=== PATIENT | male | born 1965 | race Two or more races ===

== ENCOUNTER 2021-10-15 07:11 | Emergency (ER) | payer SELFPAY ==
[~2021-10-15] VITALS: Ht 165.1 cm; Wt 74.8 kg
--- NOTE | 2021-10-15 07:11 | NUR ---
BIB SISTER PT C/O ABDOMNIAL PAIN, NAUSEA, AND VOMITTING X2 DAYS. PT IS A&OX4 AND STABLE. PT VITAL ARE STABLE AND BREATHING IS UNLABORED. PT WAS SENT TO ER BED 1. WILL CONTINUE TO MONITOR.
--- NOTE | 2021-10-15 07:13 | NUR ---
PT LABS WERE DRAWN AND SENT TO LAB.
--- NOTE | 2021-10-15 07:42 | NUR ---
PT TAKEN TO CT
[2021-10-15] MEDS ORDERED: IV NS 0.9% 1,000 ML BAG IV ONE (08:00)
[2021-10-15] MEDS ORDERED: FAMOTIDINE/PF INJ 20 MG/2 ML VIAL IV ONE ×2 (08:00→08:35)
[2021-10-15] MEDS ORDERED: LIDOCAINE VISCOUS 2% UD 15 ML UDC MM ONE (08:00)
[2021-10-15] MEDS ORDERED: MORPHINE SULFATE INJ 2 MG/ML DISP.SYRIN IV ONE (08:00)
[2021-10-15] MEDS ORDERED: MAG HYDROX/AL HYDROX/SIMETH 30 ML UDC PO ONE (08:00)
[2021-10-15] MEDS ORDERED: ONDANSETRON HCL/PF 4 MG/2 ML VIAL IVP ONE (08:00)
--- NOTE | 2021-10-15 08:11 | NUR ---
Note undone in EDM - 10/15/21 at 0940 by DOMINIQUEO BIB SISTER PT C/O ABDOMNIAL PAIN, NAUSEA, AND VOMITTING X2 DAYS. PT IS A&OX4 AND STABLE. PT VITAL ARE STABLE AND BREATHING IS UNLABORED. PT WAS SENT TO ER BED 1. WILL CONTINUE TO MONITOR.
[2021-10-15 08:16] LABS: BASOPHILS % (AUTO) 0.1 % (0.0-2.0); EOSINOPHILS % (AUTO) 0.1 % (0.0-6.0); HEMATOCRIT 49 % (39-51); HEMOGLOBIN 16.3 g/dL (13.5-17.5); LYMPHOCYTES # (AUTO) 0.4 K/uL (0.8-4.8); LYMPHOCYTES % (AUTO) 3.4 % (20.0-44.0); MEAN CORPUSCULAR HGB CONC 33 g/dl (31.0-36.0); MEAN CORPUSCULAR VOLUME 95 fL (80-96); MONOCYTES # (AUTO) 0.3 K/uL (0.1-1.30); MONOCYTES % (AUTO) 2.2 % (2.0-12.0); NEUTROPHILS # (AUTO) 11.4 K/uL (1.8-8.9); NEUTROPHILS % (AUTO) 94.2 % (43.0-81.0); PLATELET COUNT (AUTO) 236 K/uL (150-450); RED BLOOD CELL COUNT(AUTO) 5.14 MIL/uL (4.5-6.0); WHITE BLOOD COUNT (AUTO) 12.2 K/uL (4.3-11.0)
[2021-10-15] MEDS ORDERED: MAG HYDROX/AL HYDROX/SIMETH 30 ML UDC ONE (08:33)
[2021-10-15] MEDS ORDERED: ONDANSETRON HCL/PF 4 MG/2 ML VIAL ONE (08:33)
[2021-10-15] MEDS ORDERED: MORPHINE SULFATE INJ 4 MG/ML DISP.SYRIN ONE (08:34)
[2021-10-15] MEDS ORDERED: LIDOCAINE VISCOUS 2% UD 15 ML UDC ONE (08:34)
[2021-10-15 08:37] LABS: ALBUMIN 4.1 g/dL (3.4-5.0); BILIRUBIN,DIRECT 0.1 mg/dL (0.0-0.2); BILIRUBIN,TOTAL 0.4 mg/dL (0.2-1.0); CALCIUM, SERUM 8.2 mg/dL (8.5-10.1); POTASSIUM 3.5 mmol/L (3.5-5.1)
--- NOTE | 2021-10-15 08:42 | NUR ---
Lalo solano in [facility] - 10/15/21 at 0940 by ARIANNE PT TAKEN TO CT
[2021-10-15 08:47] LABS: BILIRUBIN,URINE Negative (NEGATIVE); COLOR,URINE YELLOW (YELLOW); LEUKOCYTE ESTERASE ,URINE Negative (NEGATIVE); NITRITE, URINE Negative (NEGATIVE); PROTEIN,URINE Negative (NEGATIVE); UGLUCOSE 100 MG/DL mg/dL (NEGATIVE); UROBILINOGEN,URINE 0.2 EU/dL (0.2)
[2021-10-15] MEDS ORDERED: PIPERACILLIN /TAZOBACTAM 3.375 G in IV D5W 50 ML IV ONE (09:30)
--- NOTE | 2021-10-15 10:17 | NUR ---
MIRIAM JOHNSON SISTER [phone]
--- NOTE | 2021-10-15 10:30 | NUR ---
DR. ROACH SURGERY SPEAKING WITH DR. LINARES
--- NOTE | 2021-10-15 10:53 | NUR ---
[facility] CALLED MACHINING SUPERVISOR PAGED.
--- NOTE | 2021-10-15 11:44 | NUR ---
CALLED [facility] AGAIN DATAPOWER CONSULTANT PAGED.
[2021-10-15] MEDS ORDERED: AMOX-430 PO (13:08)
[2021-10-15] MEDS ORDERED: HYDR-4209 PO (13:08)
[2021-10-15] MEDS ORDERED: ONDA4TAB5 PO (13:09)
[2021-10-15 14:56] VITALS: BP 167/78
== END 2021-10-15 14:29 | disposition home or self-care (01) ==
LOC: ER 07:13
DX: K81.9 Cholecystitis, unspecified (principal); R10.10 Upper abdominal pain, unspecified; D72.829 Elevated white blood cell count, unspecified; R10.13 Epigastric pain
CPT/HCPCS: 36415; 74176; 76705; 80048; 80076; 81003; 83690; 85025; 87040 ×2; 93005; 96361; 96365; 96375; 99285; J2270; J2405; J2543; J3490; J7030; J7060